=== PATIENT | female | born 1960 | race Caucasian/White ===

== ENCOUNTER 2022-08-13 07:55 | Outpatient (OUT) | payer OTHER, SELFPAY ==
--- NOTE | 2022-08-13 07:30 | NM_ITS ---
Patient: TYREL BAINS Exam Date: 08/13/2022 : 1960 Gender:F Ordering : DR AUBREY ESPINO M.D. Admission #: [id number] Family : DR. Guanako Marr . Order #: [id number] CLICK HERE TO VIEW EXAM RADIOLOGY REPORT PROCEDURE: NM TYRA PERF SPECT REST STR COMPARISON: None. INDICATIONS: ABNORMAL EKG, CHEST PAIN, TYPE 2 DIABETES TECHNIQUE: Exam Description: Stress/Rest one day protocol gated SPECT Rest Imagin.5 mCi Tc-99m Cardiolite IV on 08/13/2022 Stress Imaging 30.1 mCi Tc-99m Cardiolite IV on 08/13/2022 Exercise Protocol: Storm Heart Rate (bpm): Rest: 54 Max: 141 PMHR: 88 Blood Pressure: Rest: 136/70 Max: 158/76 Exercise Time: Minutes: 5 Seconds: 09 Stage Reached: Stage: 2 Mets 7.0 Symptoms: CHEST PAIN CORRESPONDING TO EKG CHANGES Rest and peak stress ECG findings were abnormal and the exercise portion of the study was abnormal per attending physician Dr. Marr due to ST DOWNSLOPING INTEROLATERAL LEADS. For more details please see separate cardiac stress test report. FINDINGS: QUALITY OF STUDY: Good. PERFUSION DEFECT: LOCATION: Mid-anterior. Apical anterior. [place]. SIZE: Medium (3-4 segments). SEVERITY: Moderate. TYPE: Mixed. WALL MOTION: Normal. LV SIZE: Normal. 94 mL. TID / TCD: None; 0.9 LVEF: Normal. Calculated EF 85%. SUMMARY: Myocardial perfusion imaging study has ABNORMAL findings. CONCLUSION: 1. Anterior wall defect with partial redistribution, LAD distribution. Partial reversible ischemia is suspected. Follow up recommended 2. Abnormal exercise test Dictated by: Christian Guerar MD on 08/13/2022 at 15:50 Approved by: Christian Guerra MD on 08/13/2022 at 15:53
--- NOTE | 2022-08-13 12:19 | P.STRESS_ITS ---
Stress Test Stress Test Requesting physician: AUBREY ESPINO Procedure: Exercise Cardiolite stress test General Information: Reason for Stress Test: Chest pain Cardiac History and Risk Factors: Denies personal history. Mother has unspecified disease. Resting 12 - Lead Electrocardiogram: Sinus bradycardic rhythm with rate of 56. T-waves are inverted in aVL. ST- segments are normal. Right axis deviation. Stress Test: Protocol: Storm protocol was followed, with injection of Cardiolite once target heart rate was achieved. Exercise capacity: Fair exercise capacity at a total exercise time of 5minutes 10 seconds, equivalent to 2.5MPH, 12% grade, & 7 METs. Blood pressure: Initial: 142/74, Maximum: 158/76, Recovery: 132/66 Rate & rhythm: Patient remained in sinus rhythm during the exercise and recovery portions of the study.? The maximum heart rate was 141, which was 88% of the maximum predicted heart rate 160. PVCs including couplets were noted ST-segments & T-waves: There were abnormal ST-segment changes when compared to the baseline EKG: ST-segment downsloping in II and aVF, and V4-6 during recovery. Patient response/symptoms: Non-radiating midsternal chest pain noted that corresponded with the above abnormal ST segment changes. Interpretation: This is an abnormal stress test based off ST-segment abnormalities in the inferolateral leads which corresponded to the complain of chest pain during this period. Cardiolite interpretation will be reported separately. Clinical correlation required.
== END 2022-08-13 07:56 | disposition home or self-care (01) ==
PROVIDERS: PCP Internal Medicine; Visit Provider Internal Medicine
DX: R94.31 Abnormal electrocardiogram [ECG] [EKG] (principal); R07.9 Chest pain, unspecified; E11.9 Type 2 diabetes mellitus without complications
CPT/HCPCS: 78452; 93017; A9500

== ENCOUNTER 2022-08-23 13:59 | Outpatient (OUT) | payer OTHER, SELFPAY ==
[2022-08-23 14:30] LABS: Anion Gap 11.5; BUN Creatinine Ratio 17.3; Calcium 9.2 mg/dL (8.5-10.1); Carbon Dioxide 28.5 mmol/L (21.0-32.0); Chloride 104 mmol/L (98-107); Estimated GFR (African America >60 (>=60); Estimated GFR (Non-African Ame >60 (>=60); Glucose 319 mg/dL (74-106); Sodium 140 mmol/L (136-145)
[2022-08-23 14:52] LABS: Basophils Absolute Auto 0.1 10^3/uL (0.0-0.1); Basophils Percent Auto 0.9 % (0.2-2.0); Eosinophils Absolute Auto 0.1 10^3/uL (0.0-0.7); Eosinophils Percent Auto 1.8 % (0.9-7.0); Hematocrit 43.4 % (36.0-48.0); Hemoglobin 14.4 g/dL (12.0-16.0); Immature Granulocytes Abs Auto 0.04 10^3/uL (0.00-0.03); Immature Granulocytes Pct Auto 0.5 % (0.0-0.5); Lymphocytes Absolute Auto 1.9 10^3/uL (1.2-3.8); Lymphocytes Percent Auto 24.7 % (20.5-60.0); Mean Corpuscular HGB Conc 33.2 g/dL (29.9-35.2); Mean Corpuscular Volume 90.4 fL (81.0-99.0); Mean Platelet Volume 12.5 fL (9.5-13.5); Monocytes Absolute Auto 0.5 10^3/uL (0.3-0.8); Neutrophils Absolute Auto 4.9 10^3/uL (1.4-6.5); Neutrophils Percent Auto 65.1 % (43.0-75.0); Platelet Count 213 10^3/uL (150-450); Red Cell Distribution Width 12.7 % (11.0-15.0); White Blood Count 7.6 10^3/uL (4.0-11.0)
== END 2022-08-23 14:00 | disposition home or self-care (01) ==
LOC: LAB 14:00
PROVIDERS: PCP Internal Medicine; Visit Provider Internal Medicine Interventional Cardiology
DX: Z01.818 Encounter for other preprocedural examination (principal); Z01.812 Encounter for preprocedural laboratory examination
CPT/HCPCS: 36415; 80048; 85025

== ENCOUNTER 2022-08-28 08:37 | Outpatient (OUT) | payer OTHER, SELFPAY ==
--- NOTE | 2022-08-28 09:32 | CA_ITS ---
Patient: TYREL BAINS Exam Date: 08/28/2022 : 1960 Gender:F Ordering : DR MANI HODGSON M.D. Admission #: [id number] Family : Order #: [id number] CLICK HERE TO VIEW EXAM ECHOCARDIOGRAM REPORT PROCEDURE: CA ECHO DOPPLER COMPLETE INDICATIONS: Shortness of breath COMPARISON: None. DESCRIPTION: COMPLETE ECHOCARDIOGRAM Real-time transthoracic echocardiography with 2D, M-mode, spectral and color flow Doppler performed. QUALITY: Technical quality was adequate. LEFT VENTRICLE: Normal chamber size. Normal left ventricular wall thickness. LV EF: Global left ventricular systolic function is difficult to assess but appears lower limits of normal; visually estimated ejection fraction is 50 to 55%. No obvious wall motion abnormalities. DIASTOLIC: Normal diastolic function. ATRIAL SEPTUM: Inadequately seen. LEFT ATRIUM: Normal chamber size. RIGHT ATRIUM: Normal chamber size. RIGHT VENTRICLE: Normal chamber size. Normal right ventricular systolic function. TRICUSPID VALVE: Normal mobility and thickness. No stenosis with trivial regurgitation. No evidence of pulmonary hypertension. RVSP 33mmHg MITRAL VALVE: Normal mobility and thickness. No evidence of mitral valve stenosis. There is no mitral annular calcification. No mitral regurgitation. AORTIC VALVE: Normal trileaflet appearance. No visible sclerosis. Normal leaflet mobility. No evidence of aortic valve stenosis. No aortic regurgitation. AORTIC ROOT: Normal diameter and appearance. PULMONIC VALVE: Normal thickness and mobility. No stenosis. Trivial regurgitation. PERICARDIUM: No evidence of pericardial effusion. IVC: Collapses with inspirations. Mild dilatation measuring 2.2cm. CONCLUSION: Global left ventricular systolic function is difficult to assess but appears lower limits of normal; visually estimated ejection fraction 50 to 55%. Normal diastolic function. The right ventricle is normal in size and systolic function. No significant valvular abnormalities. Adult Echocardiography Procedure Report Left Ventricle LVEDD (3.7 - 5.6 cm): 4.98 cm LVESD (2.2 - 4.0 cm): 3.17 cm LVIVS thickness (0.6 - 1.2 cm): 0.87 cm LVPW thickness (0.5 - 1.0 cm): 0.91 cm e': 0.07 m/s E - e': 15.53 LVOT Max Gradient: 1.78 mm[Hg] LVOT Area (cm2): 0.67 m/s Peak Velocity (LVOT): 0.67 m/s LVOT Diameter 1.94 cm Left Ventricular Ejection Fraction: 49.27 % Left Atrium LA Volume Index (2D A2C): 32.14 ml/m2 Left Atrium Systolic Dimension: 4.41 cm Mitral Valve MV E to A Ratio: 1.54 Mitral Valve A-Wave Peak Velocity: 0.75 m/s Mitral Valve E-Wave Peak Velocity: 1.15 m/s Right Ventricle RV Internal Diastolic Dimension: 3.90 cm Aorta AO Root Diam: 2.88 cm Ascending Ao Diam: 3.37 cm Aortic Valve AoV Area (Peak Dejan): 1.74 cm2, 1.74 cm2 Peak Velocity(Antegrade Flow): 1.13 m/s Peak Gradient(Antegrade Flow): 5.08 mm[Hg] Tricuspid Valve Peak Velocity (Regurgitant Flow): 1.42 m/s, 2.52 m/s Pulmonic Valve Mean Gradient: 2.68 mm[Hg], 2.21 mm[Hg] Mean Velocity: 0.77 m/s, 0.70 m/s Peak Velocity: 1.00 m/s Peak Gradient: 4.74 mm[Hg], 3.32 mm[Hg] Right Atrium Right Atrium Systolic Pressure: 57.56 ml, 57.56 ml Dictated by: Mani Hodgson M.D. on 08/28/2022 at 12:27 Approved by: Mani Hodgson M.D. on 08/28/2022 at 12:30
== END 2022-08-28 08:38 | disposition home or self-care (01) ==
LOC: CARD 08:38
PROVIDERS: PCP Internal Medicine; Visit Provider Internal Medicine Interventional Cardiology
DX: R06.02 Shortness of breath (principal)
CPT/HCPCS: 93306

== ENCOUNTER 2023-01-07 08:59 | Outpatient (OUT) | payer OTHER, SELFPAY ==
--- NOTE | 2023-01-07 09:05 | MM_ITS ---
Patient Name: TYREL BAINS MR#: [id number] : 1960 Exam Date: 01/07/2023 Ordering Doctor: DR AUBREY ESPINO M.D. RADIOLOGY REPORT PROCEDURE: MM TOMOSYNTHESIS SCREENING BI COMPARISON: MG MAMM SCREEN 3D NARINDER CAD, 12/15/2021. MG MAMM SCREEN 3D NARINDER CAD, 12/13/2020. MG MAMM SCREEN NARINDER W CAD, 12/01/2019. MG MAMM NARINDER SCRN W CAD DIG, 09/23/2012. INDICATIONS: Screening Calculator Name NCI Breast Cancer Risk Assessment Tool 5 Year Breast Cancer Risk 1.30% Lifetime Breast Cancer Risk 6.10% Personal Breast Cancer No Personal Ovarian Cancer No Treatments None Family Cancers None LOCATION: [facility] BREAST COMPOSITION: Heterogeneously dense,which may obscure small masses. FINDINGS: DIAGNOSTIC CATEGORY 1--NEGATIVE. RIGHT BREAST: No significant suspicious finding. No significant change has occurred. LEFT BREAST: No significant suspicious finding. No significant change has occurred. RECOMMENDATIONS: ROUTINE MAMMOGRAM AND CLINICAL EVALUATION IN 12 MONTHS. PLEASE NOTE: A NORMAL MAMMOGRAM DOES NOT EXCLUDE THE POSSIBILITY OF BREAST CANCER. A CLINICALLY SUSPICIOUS PALPABLE LUMP SHOULD BE BIOPSIED. Dictated by: Robbi Mosquera M.D. on 01/07/2023 at 12:30 Approved by: Robbi Mosquera M.D. on 01/07/2023 at 14:28
== END 2023-01-07 09:00 | disposition home or self-care (01) ==
LOC: MAMMO 08:59
PROVIDERS: PCP Internal Medicine; Visit Provider Internal Medicine
DX: Z12.31 Encounter for screening mammogram for malignant neoplasm of breast (principal)
CPT/HCPCS: 77063; 77067

== ENCOUNTER 2023-02-05 11:24 | Outpatient (OUT) | payer OTHER, SELFPAY ==
--- NOTE | 2023-02-05 11:30 | US_ITS ---
[address] [address] Patient Name: TYREL BAINS MRN: [id number] date: 1960 Sex: F Assigned Patient Location: US Current Patient Location: US Accession/Order Number: [id number] Exam Date: 02/05/2023 11:31 Report Date: 02/05/2023 14:47 At the request of: MARSHA NAJERA Procedure: US thyroid EXAMINATION: US thyroid HISTORY: paplillery carcinoma of thyroid C73 COMPARISON: 01/26/2022 TECHNIQUE: Sonographic images of the thyroid gland were obtained. FINDINGS: Area of soft tissue attenuation in the right thyroid fossa measuring 1.2 x 0.7 x 0.9 cm. Indeterminate. Consider postsurgical changes or residual thyroid tissue, stable from the prior exam The thyroid isthmus measures 6.9 mm, thickened, heterogeneous. No focal nodule The left thyroid lobe measures 4.8 x 2.1 x 2.2 cm. Single nodule. Nodule 1:0.9 x 0.6 x 0.8 cm. Solid, hyperechoic, tall, ill-defined margins, no calcifications. TR 4 US/US thyroid IMPRESSION: 0.9 cm left thyroid nodule TI-RADS: The [employer] TI-RADS committee's white paper recommendations for thyroid lesions classified as TR4 (moderately suspicious) are listed below: > 1.0 cm. Follow-up ultrasound in 1, 2, 3, and 5 years. > 1.5 cm. FNA. J. Am [place] Radiol 2017;14:[id number]. Electronically authenticated by: GENOVEVA REILLY Date: 02/05/2023 14:47
== END 2023-02-05 11:25 | disposition home or self-care (01) ==
LOC: US 11:24
PROVIDERS: PCP Internal Medicine; Visit Provider Otolaryngology
DX: C73 Malignant neoplasm of thyroid gland (principal)
CPT/HCPCS: 76536

== ENCOUNTER 2023-08-21 11:56 | Outpatient (OUT) | payer OTHER, SELFPAY ==
--- NOTE | 2023-08-21 12:01 | US_ITS ---
The [address] [address] Patient Name: TYREL BIANS MRN: [id number] date: 1960 Sex: F Assigned Patient Location: US Current Patient Location: Accession/Order Number: [id number] Exam Date: 08/21/2023 12:05 Report Date: 08/23/2023 10:05 At the request of: MARSHA NAJERA Procedure: US thyroid EXAMINATION: US thyroid HISTORY: Papillary Microcarcinoma Of Thyroid COMPARISON: No relevant comparison available. FINDINGS: RIGHT LOBE: History of right thyroidectomy. Soft tissue within the thyroid bed, 1.7 1.1 x 1.1 cm. Lobe size: LEFT LOBE: Slightly heterogeneous. Contains a stable 6 mm TR 3 nodule within the inferior pole and an incidental small colloid cyst. Lobe size: 5.0 x 2.1 x 2.4 cm ISTHMUS: Heterogeneous and stable thickening. Thickness: 7 mm US/US thyroid IMPRESSION: 1. Prior right thyroidectomy. Stable small amount of thyroid appearing tissue within the right thyroid bed. 2. Stable nodule within left lower lobe; TR 3. No additional follow-up recommended at this time. TR3 (mildly suspicious): > 1.5 cm, follow-up ultrasound in 1, 3, and 5 years. > 2.5 cm, fine needle aspiration. Electronically authenticated by: ENA VIVAS Date: 08/23/2023 10:05
--- OUTSIDE RECORDS SUMMARY | 2023-08-21 12:13 | XMS_ITS | CCD ---
Author Organization [facility] Care Team Providers Care System Developer Associate Manager Name Role Phone POPEYES, DR LARSON Consulting Unavailable TIMMIS, DR LARSON Admitting Unavailable MERCEDES, DR BURGOS Primary Care Unavailable TIMMIS, DR LARSON Attending Unavailable WEST, DR GENOVEVA Teague Consulting Unavailable MERCEDES, DR BURGOS Attending Unavailable MERCEDES, DR BURGOS Consulting Unavailable MERCEDES, DR BURGOS Primary Care Unavailable MERCEDES, DR BURGOS Admitting Unavailable WEST, DR GENOVEVA Teague Consulting Unavailable TIMMIS, DR LARSON Admitting Unavailable MERCEDES, DR BURGOS Primary Care Unavailable TIMMIS, DR LARSON Attending Unavailable TIMMIS, DR LARSON Consulting Unavailable ZIEBER, DR ENA Ponce Consulting Unavailable ELTAHAWY, EHAB Admitting Unavailable ELTAHAWY, EHAB Attending Unavailable ELTAHAWY, EHAB Attending Unavailable ELTAHAWY, EHAB Referring Unavailable TIMMIS, MARSHA H Attending Unavailable MERCEDES, AUBREY B Referring Unavailable MERCEDES, AUBREY B Attending Unavailable MERCEDES, AUBREY B Attending Unavailable MERCEDES, AUBREY B Attending Unavailable MERCEDES, AUBREY B Attending Unavailable Allergies Allergy Classification Reported Allergen(s) Allergy Type Date of Onset Reaction(s) Facility (1 source) Penicillins Drug allergy (disorder) 10-28-19 14 [facility] Repository (1 source) Sulfamethoxazole / Trimethoprim Drug Allergy 10-28-19 14 [facility] Repository (1 source) Sulfonamides (Antibiotic) Drug allergy (disorder) 10-28-19 14 [facility] Repository (1 source) Amoxicillin; Translations: [AMOXICILLIN] Drug Allergy 08-21-19 [facility] Repository (1 source) Penicillin; Translations: [PENICILLIN G] Drug Allergy 07-18-19 [facility] Repository (1 source) Sulfonamides (Antibiotic); Translations: [SULFA (SULFONAMIDE ANTIBIOTICS)] Propensity to adverse reactions to drug (disorder) 07-18-19 [facility] Repository Problems Problem Classification Problem Date Documented Da te Episodic/Chronic Cancer of thyroid (4 sources) Malignant neoplasm of thyroid gland; Translations: [MALIGNANT NEOPLASM OF THYROID GLAND] Onset: 01-26-2022 Chronic Coronary atherosclerosis and other heart disease (2 sources) Unstable angina; Translations: [Unstable angina] Onset: 08-20-2022 Chronic Other screening for suspected conditions (not mental disorders or infectious disease) (6 sources) Encounter for screening mammogram for malignant neoplasm of breast; Translations: [Abnormal result of other cardiovascular function study] Onset: 12-15-2021 Episodic Thyroid disorders (1 source) Nontoxic single thyroid nodule; Translations: [NONTOXIC SINGLE THYROID NODULE] Onset: 06-08-2021 Chronic Results Test Name Value Interpretation Reference Range Ale piresreyna Avtar 08-29-2022 ANES -- Attestation signed by Rajan Hodgson MD at 08/29/2022 9:09 AM Rajan Hodgson MD, MPH, FACC, [facility], [facility] Interventional Cardiology Pager Email: [email or web address] Patient: Carisa Bains Procedure Information Date/Time: 08/29/22 1030 Procedure: Coronary angiography (Left) Location: [facility] COSMETOLOGY INSTRUCTOR 3 / [facility] (Cath) Providers: Rajan Hodgson MD Clinical information reviewed: Allergies Physical Exam Airway Mallampati: III Neck ROM: full Cardiovascular Dental Pulmonary - normal exam Abdominal - normal exam Anesthesia Plan other (Conscious sedation) intravenous induction Anesthetic plan and risks discussed with patient. Use of blood products discussed with patient who. Plan discussed with attending and fellow. Additional Equipment Requests [facility] 08-29-2022 -- Attestation signed by Rajan Hodgson MD at 08/29/2022 9:09 AM Rajan Hodgson MD, MPH, [facility], [facility], [facility] Interventional Cardiology Pager Email: [email or web address] H&P reviewed. The patient was examined and there are no changes to the H&P. [facility] 08-29-2022 VINCENT RN educated pt on d/ c instructions. RN encouraged pt to voice any questions or concerns. Pt verbalizes no questions or concerns at this time. Pt was wheeled off of unit with all of belongings. [facility] 08-20-2022 [facility] Cardiology Clinic Note Chief Complaint: New patient here to establish care. Ref from Dr. Mercedes for abnormal stress test done last week. Chest pain started a few months ago she says. She uses cpap for severe RAFAEL and says chest pain is usually in the mornings when she wakes up. Feels like she can't get enough air. HPI: Carisa Bains is a 61 y.o. female With a history of dyslipidemia, and diabetes here for abnormal stress test For the past 1 to 2 months, she has noticed chest pain medically first thing in the morning after waking up. She was has exertional chest discomfort when climbing stairs or doing anything physical. This lasts for several minutes and resolves. He has had no orthopnea, no paroxysmal internal dyspnea, no lower extremity edema. She does not smoke. No family history of premature coronary artery disease. Cardiology ROS: Review of Systems Cardiovascular: Positive for chest pain. Respiratory: Positive for cough, shortness of breath and wheezing. Musculoskeletal: Positive for myalgias. Neurological: Positive for headaches and light-headedness. All other systems reviewed and are negative. Past Medical History She has no past medical history on file. Surgical History She has no past surgical history on file. Social History She has no history on file for tobacco use, alcohol use, and drug use. Family History No family history on file. Allergies Patient has no allergy information on record. Medications No current outpatient medications on file. Last Recorded Vitals BP 133/65 (BP Location: Left arm, Patient Position: Sitting) Pulse 55 Ht 1.638 m (5' 4.5 ) Wt 115 kg (253 lb) SpO2 98% BMI 42.76 kg/m??? Physical Examination: GENERAL: alert and oriented x3, well developed, in no acute distress. HEAD: atraumatic, normocephalic. EYES: ARIANNA, EOMI. NECK: trachea midline, no JVD present, no carotid bruits present. CARDIAC: S1, S2 present. RRR. No murmur, rubs, or gallops. RESPIRATORY: CTAB, no increased effort of breathing, no rales, rhonchi, or wheezing. ABDOMEN: soft, nontender, nondistended. EXTREMITIES: no lower extremity edema, peripheral pulses are 2+ bilaterally. No rash/skin discoloration present. NEURO: strength/sensation equal and symmetric in bilateral upper and lower extremities. PSYCH: appropriate mood, affect, and judgement. Nuclear stress test 08/13/2022: Conclusion: 1. Anterior wall defect with partial redistribution, LAD distribution. Partially reversible ischemia suspected. Follow-up recommended 2. Abnormal exercise test Assessment: Chest pain/Unstable angina Abnormal stress test - Anterior ischemia Dyslipidemia Diabetes mellitus Plan: Given the patient's symptoms, her risk factor profile, and her abnormal stress test, I recommended proceeding with invasive coronary angiography. We will schedule her for coronary angiography via left radial approach. We will obtain an echocardiogram prior to heart cath Routine labs Further recommendations pending the above Rajan Hodgson MD, MPH, [facility], [facility], [facility] Interventional Cardiology Pager Email: [email or web address] Normal [facility] Office Visiton 08-20-2022 Follow-up visit [id number] Katia Bains E 1960 F Date Provider Department Center 08/20/2022 Lb-RAJAN HODGSON ESTEPHANIA Maya Family History Problem Relation Age of Onset Heart disease Mother Family Status - Relation Status Age at Mother Level of Service:39824 [place] OFFICE/OUTPATIENT NEW MODERATE MDM 45-59 MINUTES Normal [facility] Orders Onlyon 08-20-2022 Orders Only [id number] Katia Bains E 1960 Date Provider Department Center 08/20/2022 Mili5LATOSHA STYLES ESTEPHANIA Maya Family History Problem Relation Age of Onset Heart disease Mother Family Status - Relation Status Age at Mother Normal [facility] US THYROIDon 01-26-2022 US THYROID EXAMINATION: US THYROID HISTORY: Primary malignant neoplasm of thyroid gland COMPARISON: 06/06/2021 TECHNIQUE: Sonographic images of the thyroid gland were obtained. FINDINGS: Small amount of soft tissue in the right thyroid bed measuring 1.1 x 0.8 x 0.3 cm, residual thyroid tissue versus postsurgical changes The thyroid isthmus is thickened measuring 6.2 mm, heterogeneous with nodule Left thyroid lobe measures 4.7 x 2.2 x 2.3 cm. 2 focal nodules over 5 mm Nodule 1:0.6 x 0.5 x 0.4 cm. Solid, hypoechoic, wide, smooth margins, no calcifications. TR 4 Nodule 2:0.7 x 0.6 x 0.5 cm. Solid, hyperechoic, wide, ill-defined margins, no calcifications. TR 3 IMPRESSION: 2 stable subcentimeter left thyroid nodules TI-RADS: The [place] TI-RADS committee's white paper recommendations for thyroid lesions classified as TR4 (moderately suspicious) are listed below: > 1.0 cm. Follow-up ultrasound in 1, 2, 3, and 5 years. > 1.5 cm. FNA. J. Am Alka Radiol 2017;14:587-595. Electronically authenticated by: GENOVEVA REILLY Date: 2022-01-26 12:33 Normal [facility] MG MAMM SCREEN 3D NARINDER CADon 12-15-2021 MG MAMM SCREEN 3D NARINDER CAD Patient: CARISA BAINS Exam Date: 12/15/2021 : 1960 Gender:F Ordering : DR AUBREY MERCEDES M.D. Admission #: [id number] Family : Order #: [id number] CLICK HERE TO VIEW EXAM RADIOLOGY REPORT PROCEDURE: MAMMOGRAM SCREENING 3D BILATERAL CAD COMPARISON: MG MAMM SCREEN NARINDER W CAD, 12/01/2019. MG MAMM SCREEN 3D NARINDER CAD, 12/13/2020. INDICATIONS: Screening mammography Calculator Name NCI Breast Cancer Risk Assessment Tool 5 Year Breast Cancer Risk 1.20% Lifetime Breast Cancer Risk 6.30% Personal Breast Cancer No Personal Ovarian Cancer No Treatments None Family Cancers None LOCATION: [facility] BREAST COMPOSITION: Heterogeneously dense,which may obscure small masses. FINDINGS: DIAGNOSTIC CATEGORY 2--BENIGN FINDING. NO CHANGE FROM COMPARISON. Scattered benign-appearing nodules are present. Scattered benign-appearing calcifications are present. Scattered benign-appearing lymph nodes are present. RIGHT BREAST: No significant suspicious finding. LEFT BREAST: No significant suspicious finding. RECOMMENDATIONS: ROUTINE MAMMOGRAM AND CLINICAL EVALUATION IN 12 MONTHS. PLEASE NOTE: A NORMAL MAMMOGRAM DOES NOT EXCLUDE THE POSSIBILITY OF BREAST CANCER. A CLINICALLY SUSPICIOUS PALPABLE LUMP SHOULD BE BIOPSIED. Dictated by: Genoveva Reilly MD on 12/15/2021 at 11:34 Approved by: Genoveva Reilly MD on 12/15/2021 at 11:36 Normal [facility] US THYROIDon 06-06-2021 US THYROID EXAMINATION: US THYROID HISTORY: Primary malignant neoplasm of thyroid gland COMPARISON: Ultrasound thyroid 11/24/2020 FINDINGS: RIGHT LOBE: Prior right lobectomy with small amount of tissue within thyroid bed, 1.1 x 0.8 x 0.4 cm. LEFT LOBE: Heterogeneous echotexture. Contains a 7 mm TR 3 nodule and a 5 mm TR 3 nodule. Lobe size: 4.9 x 2.1 x 2.3 cm ISTHMUS: Heterogeneous and mildly thickened; unchanged. Thickness: 6 mm IMPRESSION: 1. Prior right thyroidectomy with small amount of residual tissue versus regrowth; stable. 2. Small TR 3 nodules within left lobe. Follow-up in one year recommended. TR 3: The [place] [employer] TI-RADS committee's white paper recommendations for thyroid lesions classified as TR3 (mildly suspicious) are listed below: > 1.5 cm. Follow-up ultrasound in 1, 3, and 5 years. > 2.5 cm. FNA. J. Am Alka Radiol 2017;14:587-595. Electronically authenticated by: ENA VIVAS Date: 2021-06-06 16:33 Normal [facility] Q - MICROALBUMIN,RANDOM URIN E (W/CREAT)on 03-16-2021 Albumin DL <= 20 mg/L (U) [Mass/Vol] 2.2 mg/dL Normal See Note: [place] [employer] Comment on above: Order Comment: [facility] Testing performed at: [facility], [address] [place] [address], [address] [place] [address], [address] [place] [address], Recreation Therapist: Star Chaudhary MD [facility] Collection Date/Time: [facility] Results Received Date/Time: [facility] Reported Date/Time: Result Comment: Refe rence Range: Reference Range Not established Performed By: #### [id number] #### [facility] Default [address] [place] [address] Creatinine (U) [Mass/Vol] 90 mg/dL Normal 20-275 [place] [employer] Comment on above: Order Comment: [facility] Testing performed at: [facility], [address] [place] [address], [address] [place] [address], [id number], Recreation Therapist: Star Chaudhary MD [facility] Date/Time: [facility] Results Received Date/Time: [facility] Reported Date/Time: Performed By: #### [id number] #### [facility] [address] [place] [address] MICROALBUMIN/CREA TININE RATIO, RANDOM URINE 24 mcg/mg creat Normal <30 [place] [employer] Comment on above: Order Comment: [facility] Testing performed at: [facility], [address] [place], [place] [address], [address] [facility], [place], [address], Recreation Therapist: Star Chaudhary MD [facility] Collection Date/Time: [facility] Results Received Date/Time: [facility] Reported Date/Time: Result Comment: The ADA defines abnormalities in albumin excretion as follows: Albuminuria Category Result (mcg/mg creatinine) Normal to Mildly increased <30 Moderately increased 30-299 Severely increased > OR = 300 The ADA recommends that at least two of three specimens collected within a 3-6 month period be abnormal before considering a patient to be within a diagnostic category. Performed By: #### [id number] #### [facility] [address] [place] [address] Encounters Encounter Date Encounter Type Care Provider Facility Start: 06-27-2023 End: 06-27-2023 ambulatory AUBREY MERCEDES Not Available Start: 05-30-2023 End: 05-30-2023 ambulatory AUBREY MERCEDES Not Available Start: 03-18-2023 End: 03-18-2023 ambulatory AUBREY MERCEDES Not Available Start: 03-05-2023 End: 03-05-2023 ambulatory MARSHA NAJERA Not Available Start: 01-16-2023 End: 01-16-2023 ambulatory AUBREY MERCEDES Not Available Start: 08-29-2022 End: 08-29-2022 ambulatory [facility] Start: 08-20-2022 End: 08-20-2022 ambulatory [facility] Start: 01-26-2022 End: 01-27-[address] MARSHA NAJERA Facility:[facility] Start: 12-15-2021 End: 12-16-[address] AUBREY MERCEDES Facility:[facility] Start: 06-06-2021 End: 06-07-[address] MARSHA NAJERA Facility:[facility] Payers Date Payer Category Payer Private Health Insurance [id number] 1960 Unknown [id number] 2.16.84 [id number] 1960 Unknown [id number] 2.16.84 [id number] 1960 Unknown [id number] 2.16.84 [id number] 1960 Unknown [id number] 2.16.84 [id number] 1960 Unknown [id number] 2.16.84 [id number] 1960 Unknown [id number] 2.16.84 [id number] 1960 Unknown [id number] 2.16.84 [id number] 1960 Unknown [id number] 2.16.84 [id number] 1960 Unknown [id number] [id number] .[id number] 1958 Unknown [id number] Progress note 08-29-2022 Note Date & Type Note Facility 08-29-2022 Note Cardiovascular Labor atory Report FINAL IMPRESSIONS: Angiographically nonobstructive coronary arteries Normal global left ventricular systolic function by noninvasive imaging Mild systemic hypertension RECOMMENDATIONS: Consider alternate etiologies for the patient's symptomatology namely pulmonary Aggressive cardiovascular factor modification Follow-up with [facility] cardiology on an as-needed basis Follow-up with Dr. Lucas, her family physician and pulmonology as scheduled PROCEDURES: Ultrasound-guided access to the left radial artery, bilateral selective coronary angiography via a left radial approach METHODS: After risks, benefits, and alternatives were explained, written informed consent was obtained. The patient was prepped and draped in usual sterile fashion over the left wrist. Local infiltration anesthesia was achieved of the left wrist. Using a micropuncture kit, access to the left radial artery was obtained. A 6 Sudanese glide sheath was inserted without difficulty. Bilateral selective coronary angiography was performed using JR 4.0 and JL 4.0 catheters. After reviewing the images, it was elected to conclude the procedure. The catheters were removed. The radial sheath was removed with application of a TR band per protocol to achieve optimal hemostasis. The patient tolerated the procedure well. There were no complications. She was to be transferred to the holding area in stable condition. FINDINGS: Hemodynamics: AO 146/83 [103] LEFT VENTRICULOGRAPHY: This was not performed. Ejection fraction is 50-55% by echocardiography. CORONARY ARTERIES: Left main coronary artery: This arises from the left coronary cusp and bifurcates into the left anterior descending and left circumflex coronary arteries. It is free of significant stenosis. Left anterior descending coronary artery: This is angiographically nonobstructive. Left circumflex coronary artery: This is a dominant vessel giving rise to the posterior descending and posterolateral branches. It is angiographically nonobstructive. Right coronary artery: This is a small nondominant vessel. It is angiographically nonobstructive. INDICATIONS: Exertional shortness of breath, abnormal stress test [facility] Progress note 08-20-2022 Note Date & Type Note Facility 08-20-2022 Note [facility] Cardiology Clinic Note Chief Complaint: New patient here to establish care. Ref from Dr. Mercedes for abnormal stress test done last week. Chest pain started a few months ago she says. She uses cpap for severe RAFAEL and says chest pain is usually in the mornings when she wakes up. Feels like she can't get enough air. HPI: Carisa Bains is a 61 y.o. female With a history of dyslipidemia, and diabetes here for abnormal stress test For the past 1 to 2 months, she has noticed chest pain medically first thing in the morning after waking up. She was has exertional chest discomfort when climbing stairs or doing anything physical. This lasts for several minutes and resolves. He has had no orthopnea, no paroxysmal internal dyspnea, no lower extremity edema. She does not smoke. No family history of premature coronary artery disease. Cardiology ROS: Review of Systems Cardiovascular: Positive for chest pain. Respiratory: Positive for cough, shortness of breath and wheezing. Musculoskeletal: Positive for myalgias. Neurological: Positive for headaches and light-headedness. All other systems reviewed and are negative. Past Medical History She has no past medical history on file. Surgical History She has no past surgical history on file. Social History She has no history on file for tobacco use, alcohol use, and drug use. Family History No family history on file. Allergies Patient has no allergy information on record. Medications No current outpatient medications on file. Last Recorded Vitals BP 133/65 (BP Location: Left arm, Patient Position: Sitting) Pulse 55 Ht 1.638 m (5' 4.5 ) Wt 115 kg (253 lb) SpO2 98% BMI 42.76 kg/m??? Physical Examination: GENERAL: alert and oriented x3, well developed, in no acute distress. HEAD: atraumatic, normocephalic. EYES: ARIANNA, EOMI. NECK: trachea midline, no JVD present, no carotid bruits present. CARDIAC: S1, S2 present. RRR. No murmur, rubs, or gallops. RESPIRATORY: CTAB, no increased effort of breathing, no rales, rhonchi, or wheezing. ABDOMEN: soft, nontender, nondistended. EXTREMITIES: no lower extremity edema, peripheral pulses are 2+ bilaterally. No rash/skin discoloration present. NEURO: strength/sensation equal and symmetric in bilateral upper and lower extremities. PSYCH: appropriate mood, affect, and judgement. Nuclear stress test 08/13/2022: Conclusion: 1. Anterior wall defect with partial redistribution, LAD distribution. Partially reversible ischemia suspected. Follow-up recommended 2. Abnormal exercise test Assessment: Chest pain/Unstable angina Abnormal stress test - Anterior ischemia Dyslipidemia Diabetes mellitus Plan: Given the patient's symptoms, her risk factor profile, and her abnormal stress test, I recommended proceeding with invasive coronary angiography. We will schedule her for coronary angiography via left radial approach. We will obtain an echocardiogram prior to heart cath Routine labs Further recommendations pending the above Rajan Hodgson MD, MPH, [facility], [facility], [facility] Interventional Cardiology Pager Email: [email or web address] Purpose Family History No Family History Records FoundNo Family History Records FoundNo Family History Records FoundNo Family History Records Found Advance Directives No Advanced Directives Records FoundNo Advanced Directives Records FoundNo Advanced Directives Records FoundNo Advanced Directives Records Found Additional Source Comments INFORMATION SOURCE (unrecogn ized section and content) DATE CREATED AUTHOR 03/20/2021 [facility] dical Specialist DATE CREATED AUTHOR AUTHOR'S ORGANIZ ATION 02/08/2022 [facility] pital DATE CREATED AUTHOR AUTHOR'S ORGANIZ ATION 09/04/2022 [facility] DATE CREATED AUTHOR AUTHOR'S CONSTANTINE GARCIA 06/29/2023 [facility] dical Specialists EPIC FOR RECORDS PERTAINING TO PATIENTS WHO ARE OR HAVE BEEN ENROLLED IN A CHEMICAL DEPENDENCY/SUBSTANCEABUSE PROGRAM, SOME INFORMATION MAY BE OMITTED. This clinical summary was aggregated from multiple sources. Caution should be exercised in using it in the provision of clinical care. This summary normalizes information from multiple sources, and as a consequence, information in this document may materially change the coding, format and clinical context of patient data. In addition, data may be omitted in some cases. CLINICAL DECISIONS SHOULD BE BASED ON THE PRIMARY CLINICAL RECORDS. [facility] [employer] [facility]. provides no warranty or guarantee of the accuracy or completeness of information in this document.
== END 2023-08-21 11:57 | disposition home or self-care (01) ==
LOC: US 11:56
PROVIDERS: PCP Internal Medicine; Visit Provider Otolaryngology
DX: C73 Malignant neoplasm of thyroid gland (principal)
CPT/HCPCS: 76536

== ENCOUNTER 2024-03-17 10:25 | Outpatient (OUT) | payer SELFPAY ==
--- NOTE | 2024-03-17 10:28 | US_ITS ---
[address] [address] Patient Name: TYREL BAINS MRN: [id number] date: 1960 Sex: F Assigned Patient Location: US Current Patient Location: US Accession/Order Number: [id number] Exam Date: 03/17/2024 10:30 Report Date: 03/17/2024 13:51 At the request of: MARSHA NAJERA Procedure: US thyroid EXAMINATION: US thyroid HISTORY: Thyroid Nodule COMPARISON: 08/21/2023 TECHNIQUE: Sonographic images of the thyroid gland were obtained. FINDINGS: Soft tissue identified in the right thyroid bed measuring 1.0 x 0.9 x 0.8 cm, postsurgical change versus recurrent/residual thyroid tissue The thyroid isthmus measures 6.6 mm, thickened The left thyroid lobe measures 4.4 x 2.2 x 1.9 cm. 9 mm TR 3 nodule US/US thyroid IMPRESSION: Postsurgical change versus residual/recurrent thyroid tissue in the right thyroid bed 9 mm left thyroid TR 3 nodule TI-RADS: The [place] [employer] TI-RADS committee's white paper recommendations for thyroid lesions classified as TR3 (mildly suspicious) are listed below: > 1.5 cm. Follow-up ultrasound in 1, 3, and 5 years. > 2.5 cm. FNA. J. Am Alka Radiol 2017;14:587-595. Electronically authenticated by: GENOVEVA REILLY Date: 03/17/2024 13:51
--- OUTSIDE RECORDS SUMMARY | 2024-03-17 10:29 | XMS_ITS | CCD ---
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 DATE CREATED AUTHOR 03/20/2021 [facility] dical Specialist DATE CREATED AUTHOR AUTHOR'S ORGANIZ ATION 02/08/2022 [facility] DATE CREATED AUTHOR AUTHOR'S ORGANIZ ATION 09/04/2022 [facility] DATE CREATED AUTHOR AUTHOR'S ORGANIZ ATION 03/02/2024 [facility] dical Specialists EPIC Care Teams (unrecognized sec tion and content) Campaign Analyst Relationship Specialty Start Date End Date Chuy Mercedes MD [address] [id number] PCP - General Internal Medicine 07/04/22 Campaign Analyst Relationship Specialty Start Date End Date Chuy Mercedes MD [address] [address] PCP - General Internal Medicine 07/04/22 FOR RECORDS PERTAINING TO PATIENTS WHO ARE [...] BE BASED ON THE PRIMARY CLINICAL RECORDS. [facility]. provides no warranty or guarantee of the accuracy or completeness of information in this document.
== END 2024-03-17 10:26 | disposition home or self-care (01) ==
LOC: US 10:25
PROVIDERS: PCP Internal Medicine; Visit Provider Otolaryngology
DX: E04.1 Nontoxic single thyroid nodule (principal)
CPT/HCPCS: 76536